=== PATIENT | male | born 1965 | race Caucasian/White ===

== ENCOUNTER → 2023-11-01 | Day surgery (SDC) | payer BC ==
[~2023-11-01] MED LIST: Midazolam 1 MG/ML 2 ML SDV ONE; Propofol 200 MG/20 ML SDV ONE; fentaNYL 100 MCG/2 ML SDV ONE
[2023-11-01] MEDS: Sodium Chloride 0.9% 1,000 ML IV SCH (09:06)
[2023-11-01] MEDS: ceFAZolin 2 GM in Premix Bag 1 BAG IV ONE (10:50)
[2023-11-01] MEDS: Lidocaine 1% with EPINEPHrine 1:100,000 50 ML MDV ONE (11:15)
[2023-11-01] MEDS: Bupivacaine 0.5% 50 ML MDV ONE (11:15)
== END ==
LOC: JP.SDS 08:03
PROVIDERS: ATTEND Surgery
DX: Z45.2 Encounter for adjustment and management of vascular access device (principal); C78.7 Secondary malignant neoplasm of liver and intrahepatic bile duct
CPT/HCPCS: 00532; 36561; 71045; 77001; C1788; C1894; J0665; J0690; J1642; J2250; J2704; J3010; J7030